=== PATIENT | female | born 1960 | race Caucasian/White ===

== ENCOUNTER 2020-09-16 07:23 | Emergency (ER) | payer BC ==
--- NOTE | 2020-09-16 07:57 | EDM.PDOC ---
ED HPI GENERAL MEDICAL PROBLEM - General Chief Complaint: Upper Extremity Injury/Pain Stated Complaint: SWELLING/NUMBNESS IN R ARM Time Seen by Provider: 09/16/20 07:33 Source of Information: Reports: Patient History Limitations: Reports: No Limitations - History of Present Illness INITIAL COMMENTS - FREE TEXT/NARRATIVE: Ms. Escamilla is a very pleasant 60-year-old woman who now presents to the ED with tingling and numbness to her right upper extremity. She states that she has been moving recently. She then woke early this morning with tingling and numbness to her right 2nd, 3rd, and 4th fingers. She went back to sleep, but when she got up this morning, she then had a "cotton" feeling in her right thumb and 5th, as well as her hand, and a sending up her right forearm, in addition to the same tingling and numbness in her 2nd, 3rd, and 4th fingers. She feels that her fingers appear to be swollen. She is concerned, because she had similar symptoms about 7 years ago, associated with an infection in her and that a scented upper forearm. She has a scab over the dorsal aspect of her right 3rd PIP joint, and is concerned that perhaps that is infected, causing the same problem. No recent fever. The patient states that she has been taking aspirin and Tylenol since the onset of her symptoms. Here in the ED, the patient is found to be hemodynamically stable, afebrile, saturating 97% on room air. Prior to early this morning, the patient denies having a recent fever, chills, sore throat, ear pain, nasal or sinus congestion, cough, dyspnea, chest pain, palpitations, nausea, vomiting, constipation, diarrhea, abdominal pain, urinary symptoms, recent weight gain or weight loss, recent bloody bowel movements or black bowel movements, recent joint aches, headaches, or rashes. The patient's PCP is Dr. Duyen Good. She did not receive an influenza vaccine this season, but agreed to receive one here today. - Related Data Allergies Allergy/AdvReac Type Severity Reaction Status Date / Time [email or web address] Allergy Cannot Uncoded 09/16/20 07:39 Remember Home Meds: Home Meds Calcium Carb/Vitamin D3/Vit K1 [Calcium + D Soft Chewable Tab] 02/20/14 [History] Escitalopram [Lexapro] 10 mg PO DAILY 02/20/14 [History] Past Medical History Gastrointestinal History: Reports: GERD Psychiatric History: Reports: Anxiety, Depression - Past Surgical History Musculoskeletal Surgical History: Reports: Other (See Below) (Right ankle tendon repair) Social & Family History - Tobacco Use Tobacco Use Status *Q: Current Every Day Tobacco User Years of Tobacco use: 32 Packs/Tins Daily: 0.3 Packs/Tins Daily Comment: Down from 1 ppd - Alcohol Use Alcohol Use History: Yes Alcohol Use Frequency: Rarely - Recreational Drug Use Recreational Drug Use: No - Living Situation & Occupation Living situation: Reports: , with Family (Grandson) Occupation: Employed ([id number]) Review of Systems - Review of Systems Review Of Systems: Comprehensive ROS is negative, except as noted in HPI. ED EXAM, GENERAL - Physical Exam Exam: See Below Exam Limited By: No Limitations General Appearance: Alert, WD/WN, No Apparent Distress Extremities: Other (Very subtle, if any, swelling to the right 2nd, 3rd, and 4th fingers. There is a small dried scab over the dorsal aspect of the right 3rd PIP joint, engel, there are no visible abnormalities to the patient's right hand, such as erythema, ecchymosis, or abrasions. The patient reports a tingling sensation to all of the fingers of her right hand, which extends to her hand and distal forearm, however, there is no weakness. No loss of prominence of the right thenar eminence. Vascular status of the right upper extremity is intact.) Course - Vital Signs Last Recorded V/S: Last Vital Signs Temp 36.6 C 09/16/20 07:36 Pulse 69 09/16/20 07:36 Resp 16 09/16/20 07:36 BP 114/58 L 09/16/20 07:36 Pulse Ox 97 09/16/20 07:36 - Orders/Labs/Meds Orders: Active Orders 24 hr Category Date Time Status Influenza Vaccine Charge [RC] .DISCHARGE Care 09/16/20 07:52 Ordered Pharmacy to Dose - InFluenza V [Pharmacy to Dose - Med 09/16/20 07:52 Once InFluenza Vaccine] 1 each IM ONETIME ONE - Re-Assessments/Exams Free Text/Narrative Re-Assessment/Exam: 09/16/20 07:52 As above, the patient has been moving recently, then woke up early this morning with tingling to her right 2nd, 3rd, and 4th fingers. When she got up this morning, she had, in addition to the tingling in those fingers, a "cotton" feeling in her other 2 fingers, hand, and extending up her right forearm. She is concerned because she had similar symptoms associated with an infection in the right hand and arm 7 years ago. Today, however, while she has a scab over the dorsal aspect of her right 3rd PIP joint, there is no suggestion of an infection. I suspect that the patient's paresthesia is due to overuse of the right upper extremity, causing some local inflammation. Since she has finished moving, and now only needs to unpack, I am recommending rest, ice, elevation, and [id number] ibuprofen. I would expect the paresthesia to resolve completely, over time. The patient will be given an influenza vaccine prior to discharge. Departure - Departure Time of Disposition: 07:55 Disposition: Home, Self-Care 01 Condition: Good Clinical Impression: Paresthesia of right arm - Discharge Information *PRESCRIPTION DRUG MONITORING PROGRAM REVIEWED*: Not Applicable *COPY OF PRESCRIPTION DRUG MONITORING REPORT IN PATIENT JASON: Not Applicable Referrals: Duyen Thyaer MD [Primary Care Provider] - Additional Instructions: You were seen in the emergency room after developing tingling and numbness to your right fingers, hand, and forearm, associated with moving. Based on your history and physical examination, the symptoms you are experiencing are due to paresthesia, most likely due to local inflammation of your forearm and hand muscles due to recent overuse associated with your move. We recommend that you rest your right upper extremity, elevate as much as possible, and apply ice packs several times a day. We recommend that you take [id number] ibuprofen, 3 tablets (600 mg) up to every 8 hours, with food. We expect that your symptoms should completely resolve within the next few days. If your symptoms do not resolve or worsen, we recommend you follow-up with your PCP, Dr. Duyen Good. If any other problems, please do not hesitate to return to the ER. You were given an influenza vaccine during your ER visit. Sepsis Event Note (ED) - Evaluation Sepsis Screening Result: No Definite Risk - Focused Exam Vital Signs: Vital Signs Temp Pulse Resp BP Pulse Ox 09/16/20 07:36 36.6 C 69 16 114/58 L 97 - My Orders Last 24 Hours: My Active Orders 09/16/20 07:52 Influenza Vaccine Charge [RC] .DISCHARGE Pharmacy to Dose - InFluenza V [Pharmacy to Dose - InFluenza Vaccine] 1 each IM ONETIME ONE - Assessment/Plan Last 24 Hours: My Active Orders 09/16/20 07:52 Influenza Vaccine Charge [RC] .DISCHARGE Pharmacy to Dose - InFluenza V [Pharmacy to Dose - InFluenza Vaccine] 1 each IM ONETIME ONE
[2020-09-16] MEDS ORDERED: FLU VACC QS2020-21(6MOS UP)/PF 60 MCG/0.5 ML SYRINGE IM ONE (08:00)
== END 2020-09-16 08:15 | disposition home or self-care (01) ==
LOC: JD.ED 07:23
DX: R20.2 Paresthesia of skin (principal); R20.0 Anesthesia of skin; F41.9 Anxiety disorder, unspecified; F32.9 Major depressive disorder, single episode, unspecified; F17.210 Nicotine dependence, cigarettes, uncomplicated; Z23 Encounter for immunization; Z91.018 Allergy to other foods; Z79.899 Other long term (current) drug therapy
CPT/HCPCS: 90686; 99282; 99283-25; G0008

== ENCOUNTER 2022-03-23 10:27 | Emergency (ER) | payer BC ==
[2022-03-23] MEDS ORDERED: Sodium Chloride 0.9% 10 ML Syringe FLUSH PRN (11:53)
[2022-03-23] MEDS ORDERED: Metoclopramide 10 MG/2 ML SDV IVPUSH ONE (11:53)
[2022-03-23] MEDS ORDERED: Sodium Chloride 0.9% 1,000 ML IV ONE (11:53)
[2022-03-23 12:56] LABS: CORONAVIRUS COVID-19 NAA NEGATIVE (NEGATIVE)
== END 2022-03-23 15:00 | disposition home or self-care (01) ==
LOC: JD.ED 10:27
DX: N30.00 Acute cystitis without hematuria (principal); R11.2 Nausea with vomiting, unspecified; K21.9 Gastro-esophageal reflux disease without esophagitis; F17.210 Nicotine dependence, cigarettes, uncomplicated; Z91.018 Allergy to other foods; Z79.899 Other long term (current) drug therapy; Z20.822 Contact with and (suspected) exposure to COVID-19
CPT/HCPCS: 0240U; 36415; 80053; 81001; 85025; 87086; 96361; 96374; 99284; J2765; J3490; J7030

== ENCOUNTER 2022-07-07 17:38 | Emergency (ER) | payer BC ==
[2022-07-07] MEDS ORDERED: Sodium Chloride 0.9% 10 ML Syringe FLUSH PRN (18:07)
[2022-07-07] MEDS ORDERED: Ondansetron 4 MG/2 ML SDV IVPUSH ONE (18:07)
[2022-07-07] MEDS ORDERED: Ketorolac 30 MG/ML SDV IVPUSH ONE (18:07)
[2022-07-07] MEDS ORDERED: Sodium Chloride 0.9% 1,000 ML IV ONE (18:07)
== END 2022-07-07 19:50 | disposition home or self-care (01) ==
LOC: JD.ED 17:38
DX: U07.1 COVID-19 (principal); R11.2 Nausea with vomiting, unspecified; K21.9 Gastro-esophageal reflux disease without esophagitis; F17.210 Nicotine dependence, cigarettes, uncomplicated; Z91.018 Allergy to other foods; Z79.899 Other long term (current) drug therapy
CPT/HCPCS: 36415; 80053; 83735; 85025; 86140; 96361; 96374; 96375; 99284; J1885; J2405; J3490; J7030; 99283